=== PATIENT | male | born 1935 | race Caucasian/White ===

== ENCOUNTER 2019-08-05 10:02 | Emergency (ER) | payer MEDICARE ==
[2019-08-05] MEDS ORDERED: CEPHALEXIN 500 MG CAPSULE ONE (10:37)
== END 2019-08-05 11:08 | disposition home or self-care (01) ==
LOC: EDH 10:02
DX: S51.832A Puncture wound without foreign body of left forearm, initial encounter (principal); Z72.0 Tobacco use; Z88.8 Allergy status to other drugs, medicaments and biological substances; W34.010A Accidental discharge of airgun, initial encounter; Y93.89 Activity, other specified; Y92.89 Other specified places as the place of occurrence of the external cause; Y99.8 Other external cause status
CPT/HCPCS: 73090